=== PATIENT | male | born 1960 | race Caucasian/White ===

== ENCOUNTER 2017-03-15 09:53 | Emergency (ER) | payer BC, OTHER ==
[2017-03-15 10:00] VITALS: BMI 29.3
--- NOTE | 2017-03-15 10:24 | PDOC ---
History of Present Illness - General Chief Complaint: Back Pain Stated Complaint: BACK PAIN Time Seen by Provider: 03/15/17 10:18 - History of Present Illness Initial Comments: 03/15/17 10:24 Patient is a 56 y.o. male with a PMH of HTN and DLD who presents c/o acute onset of L flank pain. The pain is "sharp" non-radiating, constant 6/10. Patient denies any associated bladder or bowel incontinence, dysuria, hematuria or blood stools. Patient does endorse nausea but denies vomiting, fever, chills , diarrhea, constipation. Patient was tolerating PO intake as of yesterday evening. Allergy: Penicillin Surgical: none PMD: Chidi Guerin Past History - Past Medical History Allergies/Adverse Reactions: Allergies Allergy/AdvReac Type Severity Reaction Status Date / Time Penicillins Allergy Unknown Verified 03/15/17 09:54 Home Medications: Ambulatory Orders Aspirin [Baby Aspirin] 81 mg PO DAILY 08/05/11 Atorvastatin Ca [Lipitor -] 10 mg PO HS 04/28/14 Irbesartan 300 mg PO DAILY 04/28/14 COPD: No HTN: Yes Hypercholesterolemia: Yes - Immunization History Td Vaccination: Yes Immunization Up to Date: No - Suicide/Smoking/Psychosocial Hx Smoking Status: No Smoking History: Never smoked Have you smoked in the past 12 months: No Number of Cigarettes Smoked Daily: 0 If you are a former smoker, when did you quit?: 7 YEARS Cigars Per Day: 0 Information on smoking cessation initiated: No Hx Alcohol Use: No Drug/Substance Use Hx: No Substance Use Type: None Review of Systems - Review of Systems Constitutional: No: Chills, Fever Respiratory: No: Shortness of Breath Cardiac (ROS): No: Chest Pain ABD/GI: No: Constipated, Diarrhea, Nausea, Vomiting, Abdominal cramping : No: Burning, Dysuria All Other Systems: Reviewed and Negative *Physical Exam - Vital Signs Last Vital Signs Temp Pulse Resp BP Pulse Ox 97.8 F 68 20 178/90 100 03/15/17 09:54 03/15/17 09:54 03/15/17 09:54 03/15/17 09:54 03/15/17 09:54 - Physical Exam Neck: positive: Trachea midline, Supple Respiratory/Chest: positive: Lungs Clear, Normal Breath Sounds Cardiovascular: positive: S1, S2 Gastrointestinal/Abdominal: positive: Normal Bowel Sounds, Soft. negative: Protuberent, Distended, Guarding, Rebound, Tenderness, Hernia, Mass Musculoskeletal: negative: CVA Tenderness (R), CVA Tenderness (L) Extremity: positive: Normal Capillary Refill, Normal Inspection Integumentary: positive: Normal Color, Dry, Warm Neurologic: positive: Fully Oriented, Alert ED Treatment Course - LABORATORY CBC & Chemistry Diagram: 03/15/17 10:45 03/15/17 10:45 Medical Decision Making - Medical Decision Making 03/15/17 10:44 Patient is a 56 y.o. male who presents with acute onset of L flank pain with no associated /GI symptoms. Initial DDx is for AAA (less likely, constant not increasing in severity, RF: male, however non-smoker, <60 y.o.a.) vs. nephrolithiasis. PLAN: 1. Renal CT 2. CBC, CMP, Lactic Acid, Lipase 03/15/17 12:25 CBC shows no leukocytosis. Lipase, Lactic Acid wnL. Abdominal CT negative for hydronephrosis but does show exphoyphtic lesion in L kidney midpole - possibly malignancy or PCKD. 03/15/17 12:31 Patient discharged home with return precautions and instruction to f/u with nephrology and PCP. *DC/Admit/Observation/Transfer Diagnosis at time of Disposition: Renal cyst - Discharge Dispostion Disposition: HOME Condition at time of disposition: Good Admit: No - Referrals Referrals: Vish Carreon MD [Primary Care Provider] - sE Thomas MD [Staff Physician] - - Patient Instructions Additional Instructions: A copy of your cat scan has been provided to you. Please make a follow-up appointment with nephrology for further evaluation of your renal cyst. Please also follow-up with your primary care doctor in the next week - you may wish to take the CT scan with you for this appointment. Please return to the Emergency Department for any worsening or concerning symptoms. - Post Discharge Activity Forms/Work/School Notes: Back to Work
[2017-03-15 10:58] LABS: BASOPHIL 0.7 % (0-2.0); EOSINOPHIL 1.1 % (0-4.5); MCH 31.2 pg (25.7-33.7); MCHC 33.5 g/dl (32.0-35.9); MEAN CELL VOLUME 93.1 fl (80-96); MEAN PLT VOLUME 9.8 fl (7.5-11.1); NEUTROPHILS 78.8 % (42.8-82.8); PLATELET COUNT 234 K/MM3 (134-434); RDW 13.5 % (11.9-15.9); WHITE BLOOD COUNT 9.2 K/mm3 (4.0-10.0)
[2017-03-15 11:22] LABS: ALBUMIN 4.2 g/dl (3.4-5.0); ALK PHOS 66 U/L (45-117); ANION GAP 6 (8-16); BILIRUBIN,TOTAL 0.5 mg/dL (0.2-1.0); CALCIUM 9.1 mg/dL (8.5-10.1); CO2 27 mmol/L (21-32); CREATININE 0.7 mg/dL (0.7-1.3); GLUCOSE,RANDOM 97 mg/dL (74-106); SGPT/ALT 34 U/L (12-78); TOT PROT 7.4 g/dl (6.4-8.2)
[2017-03-15 11:36] LABS: SGOT/AST 21 U/L (15-37)
[2017-03-15 11:47] VITALS: BP 147/83; PULSE 54; TEMP 98
[2017-03-15 11:59] LABS: URINE APPEARANCE SLCLOUDY; URINE BILIRUBIN NEGATIVE (NEGATIVE); URINE BLOOD 1+ (NEGATIVE); URINE COLOR YELLOW; URINE GLUCOSE (UA) NEGATIVE (NEGATIVE); URINE KETONE NEGATIVE (NEGATIVE); URINE NITRITE NEGATIVE (NEGATIVE); URINE PROTEIN NEGATIVE (NEGATIVE); URINE UROBILINOGEN NEGATIVE mg/dL (0.2-1.0)
[2017-03-15 12:12] LABS: URINE MUCUS FEW; URINE RBC 2; URINE WBC 1
--- NOTE | 2017-03-15 12:30 | PDOC ---
Attending Attestation - Resident Resident Name: Kayleen Galicia - ED Attending Attestation I have performed the following: I have examined & evaluated the patient, The case was reviewed & discussed with the resident, I agree w/resident's findings & plan, Exceptions are as noted - HPI HPI: 03/15/17 12:25 56 M with h/o HTN, HLD presents to ER with L flank pain since last night. Pt states that it is non-radiating, constant pain. Denies dysuria, denies fevers/ chills. Pt states that he has had similar pain in the past but several years ago. Has not seen a doctor for it yet. Pt denies abdominal pain. Endorses some nausea without vomiting. Denies CP/SOB. - Physicial Exam PE: 03/15/17 12:26 "GENERAL: Awake, alert, and fully oriented, in no acute distress HEAD: No signs of trauma EYES: PERRLA, EOMI, sclera anicteric, conjunctiva clear ENT: Auricles normal inspection, hearing grossly normal, nares patent, oropharynx clear without exudates. Moist mucosa NECK: Normal ROM, supple, no lymphadenopathy, JVD, or masses LUNGS: Breath sounds equal, clear to auscultation bilaterally. No wheezes, and no crackles HEART: Regular rate and rhythm, normal S1 and S2, no murmurs, rubs or gallops ABDOMEN: Soft, nontender, normoactive bowel sounds. No guarding, no rebound. No masses. + mild L CVAT EXTREMITIES: Normal range of motion, no edema. No clubbing or cyanosis. No cords, erythema, or tenderness NEUROLOGICAL: Cranial nerves II through XII grossly intact. Normal speech, normal gait SKIN: Warm, Dry, normal turgor, no rashes or lesions noted. " - Medical Decision Making 03/15/17 12:00 56 M with L flank pain. Possible renal colic. Pt with no infectious symptoms to suggest pyelo. - Labs, UA - CTAP if indicated 03/15/17 12:27 UA with trace blood CTAP shows renal cysts bilaterally. Hyperdense lesion in L kidney likely cyst with proteinaceous contents. Pt instructed to f/u with renal for further evaluation. Pt re-evaluated. With minimal pain at this time. Benign exam, no abdominal or flank tenderness. Vitals normal. Clinically stable for DC. I discussed the physical exam findings, ancillary test results and final diagnoses with the patient. I explicitly told patient that he needs further evaluation of his renal cysts to rule out malignancy, and he expresses understanding. I answered all of the patient's questions. The patient was satisfied with the care received and felt comfortable with the discharge plan and treatment plan. The patient agrees to follow up with the primary care physician within 24-72 hours.
[2017-03-15 19:59] LABS: URINE LEUK ESTERASE Negative (NEGATIVE)
== END 2017-03-15 12:58 | disposition home or self-care (01) ==
LOC: JER 09:53
DX: N28.1 Cyst of kidney, acquired (principal); I10 Essential (primary) hypertension; E78.00 Pure hypercholesterolemia, unspecified; Z79.82 Long term (current) use of aspirin
CPT/HCPCS: 36415; 74176; 80053; 81003; 81015; 83605; 83690; 85025; 99283-25

== ENCOUNTER 2020-06-07 08:19 | Day surgery (SDC) | payer BC, OTHER ==
[2020-05-18 11:29] VITALS: BMI 34.3
[2020-06-07] MEDS: TROPICAMIDE 1% OPHTH SOLN 15 ML BOTTLE ONE ×3 (08:45→08:55)
[2020-06-07] MEDS: PHENYLEPHRINE 2.5% OPHTH SOLN 15 ML BOTTLE ONE ×3 (08:45→08:55)
[2020-06-07] MEDS: CYCLOPENTOLATE 2% OPHTH SOLN 2 ML BOTTLE ONE ×3 (08:45→08:55)
[2020-06-07] MEDS: CIPROFLOXACIN 0.3% EYE DROPS 5 ML BOTTLE ONE ×3 (08:45→08:55)
[2020-06-07] MEDS ORDERED: NEO/POLYMYX B SULF/DEXAMETH OPHTHALMIC 5ML BOTTLE ONE (10:31)
[2020-06-07] MEDS ORDERED: LIDOCAINE 1% P/F 10 MG/ML VIAL ONE (10:31)
[2020-06-07] MEDS ORDERED: CARBACHOL 0.01% INTRA-OCULAR 1.5 ML VIAL ONE (10:31)
[2020-06-07] MEDS ORDERED: TETRACAINE 0.5% OPHTH SOLN 2 ML BOTTLE ONE (10:31)
[2020-06-07] MEDS ORDERED: BSS (NA/CA/MG/K) BALANCED SALT SOLUTION OPHTH SOLN 15 ML BOTTLE ONE (10:31)
[2020-06-07] MEDS ORDERED: MIDAZOLAM HCL 2 MG/2 ML SINGLE DOSE VIAL ONE (10:47)
[2020-06-07 11:27] VITALS: TEMP 98.2
[2020-06-07] MEDS ORDERED: ONDANSETRON 4 MG/2 ML VIAL IVPUSH PRN (11:45)
[2020-06-07] MEDS ORDERED: LACTATED RINGERS SOLUTION 1,000 ML IV SCH (11:45)
[2020-06-07] MEDS ORDERED: ACETAMINOPHEN 325 MG TABLET (FP) PO PRN (11:45)
[2020-06-07 11:49] VITALS: BP 138/74; PULSE 60
== END 2020-06-07 11:50 | disposition home or self-care (01) ==
LOC: FASU 08:19
PROVIDERS: ATTEND Ophthalmology
PROC: 08RK3JZ Replacement of Left Lens with Synthetic Substitute, Percutaneous Approach (ICD-10-PCS; principal; 2020-06-07 10:52)
DX: H26.9 Unspecified cataract (principal)

== ENCOUNTER 2020-08-03 09:27 | Emergency (ER) | payer BC, OTHER ==
[2020-08-03] MEDS ORDERED: IBUPROFEN 600 MG TABLET (FP) PO ONE ×2 (09:55→09:57)
[2020-08-03 09:57] VITALS: BP 136/72; PULSE 61; TEMP 98.8; BMI 31.0
== END 2020-08-03 10:24 | disposition home or self-care (01) ==
LOC: FER 09:27
DX: M79.601 Pain in right arm (principal); M79.10 Myalgia, unspecified site; S56.811A Strain of other muscles, fascia and tendons at forearm level, right arm, initial encounter
CPT/HCPCS: 99284-25

== ENCOUNTER 2021-03-19 14:06 | Emergency (ER) | payer OTHER ==
[2021-03-19 15:18] VITALS: BP 146/92; PULSE 61; TEMP 98.7; BMI 27.0
== END 2021-03-19 17:55 | disposition home or self-care (01) ==
LOC: JCOVINFU 14:06 → JER 14:06 → JCOVINFU 17:55
DX: U07.1 COVID-19 (principal)
CPT/HCPCS: 99281-25

== ENCOUNTER 2021-03-20 09:41 | Emergency (ER) | payer OTHER ==
[2021-03-20 10:27] VITALS: BMI 27.0
[2021-03-20] MEDS ORDERED: CASIRIVIMAB/IMDEVIMAB 10 ML in SODIUM CHLORIDE 100 ML IVPB ONE (10:33)
[2021-03-20 12:53] VITALS: BP 116/60; PULSE 56; TEMP 99
== END 2021-03-20 14:25 | disposition home or self-care (01) ==
LOC: JCOVINFU 09:41 → JER 09:41 → JCOVINFU 14:25
DX: U07.1 COVID-19 (principal)
CPT/HCPCS: 71046-TC-FY; 99284-25; Q0240

== ENCOUNTER 2022-03-19 04:42 | Day surgery (SDC) | payer BC, OTHER ==
[2022-03-18 14:13] VITALS: BMI 28.5
[2022-03-19 13:22] VITALS: TEMP 97.5
[2022-03-19 14:09] VITALS: BP 120/74; PULSE 63; RESP 16
== END 2022-03-19 14:14 | disposition home or self-care (01) ==
LOC: JASU-ENDO 04:42
PROVIDERS: ATTEND Internal Medicine Gastroenterology
PROC: 0D5L8ZZ Destruction of Transverse Colon, Via Natural or Artificial Opening Endoscopic (ICD-10-PCS; 2022-03-19)
PROC: 0DBN8ZX Excision of Sigmoid Colon, Via Natural or Artificial Opening Endoscopic, Diagnostic (ICD-10-PCS; 2022-03-19)
PROC: 0D5M8ZZ Destruction of Descending Colon, Via Natural or Artificial Opening Endoscopic (ICD-10-PCS; principal; 2022-03-19 12:30)
DX: Z12.11 Encounter for screening for malignant neoplasm of colon (principal); D12.0 Benign neoplasm of cecum; D12.4 Benign neoplasm of descending colon; D12.5 Benign neoplasm of sigmoid colon; D12.3 Benign neoplasm of transverse colon; K64.8 Other hemorrhoids; R19.5 Other fecal abnormalities
CPT/HCPCS: 88305-TC

== ENCOUNTER 2024-02-08 17:21 | Emergency (ER) | payer BC, OTHER ==
[2024-02-08 17:37] VITALS: PULSE 70; RESP 20; TEMP 98.6; BMI 30.7
[2024-02-08] MEDS: MECLIZINE HCL 25 MG TABLET (FP) PO ONE (18:23)
[2024-02-08] MEDS ORDERED: MECLIZINE HCL 25 MG TABLET (FP) ONE (18:23)
[2024-02-08 18:55] LABS: HEMATOCRIT 46.9 % (35.4-49); HEMOGLOBIN 15.5 G/dL (11.7-16.9); MCH 32.2 pg (25.7-33.7); MCHC 33.1 g/dl (32.0-35.9); MEAN CELL VOLUME 97.2 fl (80-96); PLATELET COUNT 254.7 10^3/uL (134-434); RBC 4.82 10^6/uL (4.00-5.60); RDW 13.2 % (11.9-15.9); WHITE BLOOD COUNT 7.4 10^3/uL (4.0-10.8)
[2024-02-08 18:58] LABS: PLATELET ESTIMATE ADEQUATE
[2024-02-08 19:07] LABS: ALBUMIN 4.4 g/dl (3.4-5.0); ALK PHOS 45 U/L (45-117); ANION GAP 7 mmol/L (4-13); BILIRUBIN,TOTAL 0.4 mg/dl (0.2-1); CALCIUM 9.7 mg/dl (8.5-10.1); CHLORIDE 106 mmol/L (98-107); CO2 26 mmol/L (21-32); CREATININE 0.8 mg/dl (0.6-1.3); GLUCOSE,RANDOM 91 mg/dl (74-106); POTASSIUM 4.3 mmol/L (3.5-5.1); SGOT/AST 25 U/L (15-37); SGPT/ALT 31 U/L (7-52); SODIUM 139 mmol/L (136-145); TOT PROT 6.6 g/dl (6.4-8.2)
[2024-02-08 20:25] VITALS: BP 164/67
== END 2024-02-08 20:41 | disposition home or self-care (01) ==
LOC: FER 17:21
DX: R42 Dizziness and giddiness (principal)
CPT/HCPCS: 36415; 70450-TC; 80053; 84484; 85027; 93005; 99285-25